=== PATIENT | male | born 1980 | race Caucasian/White ===

== ENCOUNTER 2023-06-17 22:23 | Inpatient (IN) | payer OTHER ==
[2023-06-17 22:42] VITALS: BMI 22.3
[2023-06-18] MEDS ORDERED: MAGNESIUM HYDROX 2400MG/30ML ORAL SUSPENSION 30 ML CUP PO PRN (00:04)
[2023-06-18] MEDS ORDERED: guaiFENesin 600 MG TABLET.ER (FP) PO PRN (00:04)
[2023-06-18] MEDS ORDERED: BENZOCAINE/MENTHOL (CHLORASEPTIC ) LOZENGE MM PRN (00:04)
[2023-06-18] MEDS ORDERED: NALOXONE HCL 0.4 MG/ML VIAL IM PRN (00:04)
[2023-06-18] MEDS ORDERED: LOPERAMIDE HCL 2 MG CAPSULE PO PRN (00:04)
[2023-06-18] MEDS ORDERED: MAG HYDROX/AL HYDROX/SIMETH 30 ML UNIT-DOSE CUP PO PRN (00:04)
[2023-06-18] MEDS ORDERED: DICYCLOMINE HCL 10 MG CAPSULE PO PRN (00:04)
[2023-06-18] MEDS ORDERED: BENZONATATE 200 MG CAPSULE PO PRN (00:04)
[2023-06-18] MEDS ORDERED: NICOTINE POLACRILEX 4 MG GUM BUC PRN (00:04)
[2023-06-18] MEDS ORDERED: ACETAMINOPHEN 325 MG TABLET (FP) PO PRN (00:04)
[2023-06-18] MEDS ORDERED: BISMUTH SUBSALICYLATE 524 MG/30 ML PO PRN (00:04)
[2023-06-18] MEDS ORDERED: IBUPROFEN 400 MG TABLET (FP) PO PRN (00:04)
[2023-06-18] MEDS ORDERED: NALOXONE HCL (KLOXXADO) 8 MG SPRAY NS PRN (00:04)
[2023-06-18] MEDS ORDERED: POLYETHYLENE GLYCOL (HEALTHYLAX) 3350 17 GM PACKET PO PRN (00:04)
[2023-06-18] MEDS ORDERED: ONDANSETRON *ODT* 4 MG TABLET SL PRN (00:04)
[2023-06-18] MEDS: NICOTINE 21 MG/24 HOURS TOPICAL PATCH TD SCH (09:37)
[2023-06-18] MEDS: PRENATAL VITAMINS W/ FOLIC ACID TABLET (FP) PO SCH (09:37)
[2023-06-18] MEDS ORDERED: cloNIDine HCL 0.1 MG TABLET PO PRN (09:57)
[2023-06-18] MEDS: methaDONE HCL 10 MG TABLET (FOR DETOX USE ONLY) PO ONE (10:47)
[2023-06-18] MEDS: LEVOTHYROXINE NA 112 MCG TABLET (FP) PO SCH (11:09)
[2023-06-18 11:10] LABS: HEMATOCRIT 36.7 % (35.4-49); MCH 33.1 pg (25.7-33.7); MCHC 32.5 g/dl (32.0-35.9); MEAN CELL VOLUME 101.8 fl (80-96); PLATELET COUNT 265 10^3/uL (134-434); RBC 3.61 M/mm3 (4.00-5.60); RDW 13.3 % (11.9-15.9); WHITE BLOOD COUNT 12.5 K/mm3 (4.0-10.0)
[2023-06-18 11:18] LABS: CHLORIDE 108 mmol/L (98-107); POTASSIUM 3.9 mmol/L (3.5-5.1); SODIUM 141 mmol/L (136-145)
[2023-06-18 11:22] LABS: GLUCOSE,RANDOM 92 mg/dL (74-106)
[2023-06-18 11:23] LABS: ALBUMIN 3.4 g/dl (3.4-5.0); ANION GAP 7 mmol/L (4-13); BLOOD UREA NITROGEN 15.8 mg/dL (7-18); CALCIUM 8.5 mg/dL (8.5-10.1); CO2 26 mmol/L (21-32)
[2023-06-18 11:24] LABS: SGPT/ALT 25 U/L (13-61)
[2023-06-18 11:25] LABS: CREATININE 0.9 mg/dL (0.55-1.3); SGOT/AST 32 U/L (15-37)
[2023-06-18 11:26] LABS: BILIRUBIN,TOTAL 0.2 mg/dL (0.2-1); TOT PROT 6.5 g/dl (6.4-8.2)
[2023-06-18 11:27] LABS: ALK PHOS 55 U/L (45-117)
[2023-06-18] MEDS: IBUPROFEN 600 MG TABLET (FP) PO PRN (20:47)
[2023-06-18] MEDS: METHOCARBAMOL 500 MG TABLET PO PRN (20:47)
[2023-06-18] MEDS: MELATONIN 5 MG TABLETS PO SCH (22:49)
[2023-06-18] MEDS: diazePAM 5 MG TABLET PO PRN (22:50)
[2023-06-18] MEDS: THIAMINE HCL 100 MG TABLET (FP) PO SCH (22:50)
[2023-06-19] MEDS: LEVOTHYROXINE NA 112 MCG TABLET (FP) PO SCH (06:09)
[2023-06-20] MEDS: DULoxetine HCL 20 MG CAPSULE.DR PO SCH (10:35)
[2023-06-20] MEDS: ARIPiprazole 5 MG TABLET PO SCH (10:35)
[2023-06-20] MEDS: methaDONE HCL 10 MG TABLET (FOR DETOX USE ONLY) PO ONE (10:36)
[2023-06-20] MEDS: hydrOXYzine PAMOATE 25 MG CAPSULE (FP) PO PRN (10:40)
[2023-06-20] MEDS: CLOTRIMAZOLE 1% CREAM TP SCH (12:32)
[2023-06-20] MEDS: GABAPENTIN 300 MG CAPSULE PO SCH (14:34)
[2023-06-20] MEDS: ATORVASTATIN CA 10 MG TABLET (FP) PO SCH (22:20)
[2023-06-22 06:10] VITALS: RESP 16
[2023-06-22] MEDS ORDERED: methaDONE HCL 10 MG TABLET (FOR DETOX USE ONLY) PO ONE (10:00)
[2023-06-22 12:16] VITALS: BP 100/65; PULSE 72; TEMP 97.7
== END 2023-06-22 10:36 | disposition home or self-care (01) | DRG 773 ==
LOC: YASAS 22:23 → Y6N 06-18 00:50 → Y3N 06-18 00:59
PROVIDERS: ADMIT Allergy & Immunology; ATTEND Allergy & Immunology
PROC: HZ2ZZZZ Detoxification Services for Substance Abuse Treatment (ICD-10-PCS; principal; 2023-06-18)
DX: F11.23 Opioid dependence with withdrawal (principal); F13.10 Sedative, hypnotic or anxiolytic abuse, uncomplicated; F15.10 Other stimulant abuse, uncomplicated; F17.210 Nicotine dependence, cigarettes, uncomplicated; F31.9 Bipolar disorder, unspecified; F41.9 Anxiety disorder, unspecified; E03.9 Hypothyroidism, unspecified; E78.5 Hyperlipidemia, unspecified; M54.50 Low back pain, unspecified; G89.29 Other chronic pain; Z86.19 Personal history of other infectious and parasitic diseases; Z86.69 Personal history of other diseases of the nervous system and sense organs; Z56.0 Unemployment, unspecified; Z59.00 Homelessness unspecified
CPT/HCPCS: 36415; 80053; 80307; 85027; 86780